=== PATIENT | male | born 1995 | race Caucasian/White ===

== ENCOUNTER 2021-03-20 21:31 | Emergency (ER) | payer MEDICAID, OTHER ==
[~2021-03-20] VITALS: Ht 170.2 cm; Wt 65.8 kg
--- NOTE | 2021-03-20 22:20 | NUR ---
MD Briceño in room to do MSE.
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
[2021-03-20] MEDS ORDERED: KETAMINE HCL 500 MG/10 ML INJ ONE (22:43)
[2021-03-20] MEDS ORDERED: KETAMINE HCL 500 MG/10 ML INJ IM ONE (22:45)
[2021-03-20] MEDS ORDERED: TDAP DIPH,PERTUSS,TET VAC/PF 0.5 ML DISP.SYRIN IM ONE (22:45)
--- NOTE | 2021-03-20 22:47 | NUR ---
Patient room to ER 1B due to ERMD request. Patient medicatied due to not being able to cooperate during examination. ERMD felt that patient needs to be medicated. Will continue to observe.
[2021-03-20] MEDS ORDERED: TETRACAINE HCL 0.5% OPHT DROP 2 ML BOTTLE ONE (23:21)
[2021-03-20] MEDS ORDERED: FLUORESCEIN SODIUM 1 MG STRIP ONE (23:21)
[2021-03-20 23:47] LABS: BASOPHILS % (AUTO) 0.2 % (0.0-2.0); EOSINOPHILS % (AUTO) 0.2 % (0.0-7.0); HEMATOCRIT 41.6 % (36.7-47.1); MEAN CORPUSCULAR HEMOGLOBIN 29.5 uug (23.8-33.4); MEAN CORPUSCULAR HGB CONC 34 g/dL (32.5-36.3); MEAN CORPUSCULAR VOLUME 87.9 fL (73.0-96.2); MONOCYTES # (AUTO) 0.8 K/uL (2.0-10.0); NEUTROPHILS # (AUTO) 12.2 K/uL (1.8-8.9); NEUTROPHILS % (AUTO) 86.6 % (38.5-71.5); PLATELET COUNT (AUTO) 372 K/uL (152-348); RED BLOOD CELL COUNT(AUTO) 4.73 MIL/uL (4.06-5.63)
--- NOTE | 2021-03-20 23:57 | NUR ---
Patient transported to CT in stable condition.
[2021-03-20 23:59] LABS: ALANINE AMINOTRANSFERASE 16 U/L (16-63); ALKALINE PHOSPHATASE 82 U/L (50-136); ASPARTATE AMINOTRANSFERASE 14 U/L (15-37); BILIRUBIN,TOTAL 0.5 mg/dL (0.2-1.0); CARBON DIOXIDE 29 mmol/L (21-32); CHLORIDE 99 mmol/L (98-107); CREATINE KINASE, TOTAL 213 U/L (39-308); CREATININE 1.1 mg/dL (0.6-1.3); GLUCOSE 145 mg/dL (74-106); POTASSIUM 3.7 mmol/L (3.5-5.1); TOTAL PROTEIN, SERUM 7.9 g/dL (6.4-8.2); UREA NITROGEN, BLOOD 9 mg/dL (7-18)
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
[2021-03-21 00:04] LABS: ETHANOL < 3 MG/DL (0-0)
--- NOTE | 2021-03-21 00:13 | NUR ---
Patient back in room from CT.
--- NOTE | 2021-03-21 01:41 | NUR ---
Patient asleep with non-labored breathing. Will continue to monitor.
[2021-03-21] MEDS ORDERED: CYCLOPENTOLATE 1% OPHT DROP 2 ML BOTTLE OP ONE (04:45)
[2021-03-21] MEDS ORDERED: CYCLOPENTOLATE 1% OPHT DROP 2 ML BOTTLE ONE (05:06)
[2021-03-21] MEDS ORDERED: FLUORESCEIN SODIUM 1 MG STRIP OP ONE (05:30)
[2021-03-21] MEDS ORDERED: IBUPROFEN 600 MG TABLET PO ONE (05:30)
[2021-03-21] MEDS ORDERED: TETRACAINE HCL 0.5% OPHT DROP 2 ML BOTTLE OP ONE (05:30)
[2021-03-21] MEDS ORDERED: IBUPROFEN 600 MG TABLET ONE (05:33)
[2021-03-21] MEDS ORDERED: TDAP DIPH,PERTUSS,TET VAC/PF 0.5 ML DISP.SYRIN IM ONE (05:33)
[2021-03-21] MEDS ORDERED: POLY10DR OP (05:35)
[2021-03-21] MEDS ORDERED: IBUP-1955 PO (05:35)
--- NOTE | 2021-03-21 05:43 | NUR ---
Patient discharged to home in stable condition. Written and verbal after care instructions given. Patient verbalizes understanding of instructions. Stressed follow up or return to ER for worsening s/s. Patient denies homelessness at this time. When questioned, he stated he had a place to go and usually goes from place to place or his mothers house. Patient ambulated with steady gait. A/Ox4.
[2021-03-21 05:44] VITALS: BP 124/77
== END 2021-03-21 05:45 | disposition home or self-care (01) ==
LOC: ER 21:34
DX: R41.82 Altered mental status, unspecified (principal); S05.01XA Injury of conjunctiva and corneal abrasion without foreign body, right eye, initial encounter; S02.2XXA Fracture of nasal bones, initial encounter for closed fracture; Y04.0XXA Assault by unarmed brawl or fight, initial encounter; Y92.89 Other specified places as the place of occurrence of the external cause; J32.9 Chronic sinusitis, unspecified; H20.00 Unspecified acute and subacute iridocyclitis; D72.829 Elevated white blood cell count, unspecified
CPT/HCPCS: 36415; 70450; 70486; 72125; 80053; 80320; 82550; 85025; 90471; 90715; 96372; 99285; J3490; A4663; G0480